=== PATIENT | male | born 1980 | race Two or more races ===

== ENCOUNTER 2016-10-28 17:23 | Emergency (ER) | payer OTHER ==
[~2016-10-28] VITALS: Ht 180.3 cm; Wt 86.2 kg
[2016-10-28] MEDS ORDERED: fentaNYL CITRATE 100 MCG/2 ML VL IV ONE (18:00)
[2016-10-28] MEDS ORDERED: ETOMIDATE (2MG/ML) 20ML VIAL IV ONE (18:00)
[2016-10-28 18:10] VITALS: BP 148/96
[2016-10-28] MEDS ORDERED: LORazepam 2MG/ML-1ML VIAL ONE (18:16)
[2016-10-28] MEDS ORDERED: KETAMINE HCL 50 MG/ML 10ML VIAL ONE (18:19)
[2016-10-28] MEDS ORDERED: NALOXONE HCL 0.4 MG/ML VIAL ONE (18:25)
== END 2016-10-28 21:55 | disposition home or self-care (01) ==
LOC: ER 17:29
DX: S43.015A Anterior dislocation of left humerus, initial encounter (principal); W19.XXXA Unspecified fall, initial encounter; Y93.89 Activity, other specified; Y99.8 Other external cause status; Y92.89 Other specified places as the place of occurrence of the external cause
CPT/HCPCS: 23650; 73020; 99152; 99291; J2060; J2310; J3010; 94761